=== PATIENT | male | born 1980 | race Caucasian/White ===

== ENCOUNTER 2017-01-01 15:26 | Inpatient (IN) | payer MEDICARE ==
[~2017-01-01] VITALS: Ht 157.5 cm; Wt 133.6 kg
[~2017-01-01 15:26] MED LIST: ACETAMINOPHEN325 MG PO; ACETAMINOPHEN500 M1 PO; ACIDOPHILUS LAC1 CAP PO; AMBIEN10 MG PO; BACTRIM DS TABL1 TAB PO; BACTROBAN 22 GM22 GM TP; BENEFIBER1 PKT PO; CALMOSEPTINE OI71 GM TOPICAL; CARAFATE1 G PO; CARAFATE1 G/10 ML PO; CIPRO500 MG PO; COLACE100 MG PO; CYCLOBENZAPRINE5 MG PO; DEMEROL 2525 MG/1 ML IV; DEMEROL50 MG PO; DITROPAN X5 MG/BOTTL PO; DULCOLAX10 MG/SUPP RC; ELIQUIS2.5 MG PO; ENULOSE10 G/15 ML PO; FIBER-TABS625 MG PO; FLAGYL500 MG PO; HYDROCODON-ACE1 EAC7 PO; HYDROCODONE-APA1 TAB PO; K-TAB10 MEQ PO; KLONOPIN1 MG PO; LACTINEX C1 TAB.CHEW PO; LASIX20 MG PO; LIBRAX CAPSULE1 CAP PO; LINZESS145 MCG PO; LISINOPRIL10 MG PO; LOMOTIL TABLET1 TAB PO; MELATONIN 3 MG1 TAB PO; MILK OF MAGNESI30 ML PO; MIRALAX17 GM PO; MOBIC7.5 MG PO; NORCO 10/325 TA1 TA1 PO; NUCYNTA50 MG PO; NYSTATIN1 PWD TOPICAL; NYSTATIN1 PWD TP; NYSTATIN15 GM TP; OXY IR30 MG PO; PEPCID20 MG PO; PHENERGAN25 M1 PO; PHENERGAN25 MG/ML IV; PRILOSEC20 MG PO; PROBIOTIC1 EAC1 PO; PROMOD LIQUID P30 M1 PO; PROTONIX40 MG PO; ROBAXIN-750750 MG PO; ROCEPHIN 1 GM/D51 G1 IM; SALINE FLUSH10 ML IV; SILVASORB HYDRO45 GM TP; TAZICEF IV; THEREMS-M1 TAB PO; TOPROL XL25 MG PO; TUMS500 MG PO; TYLENOL ARTHRI650 MG PO; ULTRAM50 MG PO; VANCOMYCIN 750750 MG IV; VANCOMYCIN250 MG/51 PO; VERELAN180 MG PO; VIBRAMYCIN 100100 MG PO; VITAMIN D5000 UNIT PO; ZANTAC150 MG PO; ZOFRAN8 MG PO; [UNRECOGNIZED DRUG - OTHER]
[2017-01-01 16:27] LABS: BASOPHILS 0.3 % (0-2); EOSINOPHILS 2.9 % (0-7); HEMATOCRIT 23.8 % (42.0-54.0); IMMATURE GRANULOCYTES 3.9 % (0-5); LYMPHOCYTES 17.6 % (15-50); MCH 22.4 pg (26.0-34.0); MCV 77.3 fL (80.0-100.0); MEAN PLATELET VOLUME 7.6 fL (7.4-10.4); MONOCYTES 11.1 % (2-11); NEUTROPHILS 64.2 % (40-80); RBC 3.08 10x6/uL (4.20-6.10); RDW 18.5 % (11.5-14.5); WBC 15.4 10x3/uL (4.8-10.8)
[2017-01-01 16:35] LABS: HEMOGLOBIN 6.9 g/dL (13.5-17.5); PLATELET COUNT 585 10x3/uL (130-400)
[2017-01-01 16:37] LABS: ALBUMIN 1.7 g/dL (3.4-5.0); ANION GAP 19.7 mmol/L (8-16); CALCIUM 8.6 mg/dL (8.5-10.1); CARBON DIOXIDE 14.5 mmol/L (21.0-32.0); CREATININE - SERUM 3.5 mg/dL (0.6-1.3)
[2017-01-01 16:40] LABS: APPEARANCE CLOUDY (CLEAR); BILIRUBIN NEGATIVE (NEGATIVE); COLOR YELLOW (YELLOW); GLUCOSE NEGATIVE (NEGATIVE); KETONE NEGATIVE (NEGATIVE); LEUKOCYTE ESTERASE 2+ (NEGATIVE); NITRITE NEGATIVE (NEGATIVE); POTASSIUM - SERUM 6.2 mmol/L (3.5-5.1); PROTEIN 2+ mg/dL (NEGATIVE); UROBILINOGEN NORMAL (NORMAL)
[2017-01-01 16:42] LABS: BACTERIA MANY /hpf (NONE SEEN); CALCIUM OXALATE CRYSTALS 0-5 /hpf (NONE SEEN); EPITHELIAL CELLS 0-5 /hpf (0-5)
[2017-01-01 16:43] LABS: YEAST >1+ WITH HYPHAE /hpf (NONE SEEN)
[2017-01-01 16:59] LABS: BILIRUBIN - TOTAL 0.24 mg/dL (0.2-1.3); PROTEIN - SERUM 7.7 g/dL (6.4-8.2)
[2017-01-01 23:56] VITALS: BP 130/68; BMI 47.7
[2017-01-02] VITALS: BP 136/65
[2017-01-02 04:00] VITALS: BP 137/49
[2017-01-02 06:53] LABS: BASOPHILS 0.4 % (0-2); EOSINOPHILS 3.5 % (0-7); IMMATURE GRANULOCYTES 4.3 % (0-5); LYMPHOCYTES 25.7 % (15-50); MCH 22.6 pg (26.0-34.0); MCHC 29.6 g/dL (31.0-37.0); MCV 76.5 fL (80.0-100.0); MEAN PLATELET VOLUME 7.8 fL (7.4-10.4); MONOCYTES 15.3 % (2-11); NEUTROPHILS 50.8 % (40-80); PLATELET COUNT 560 10x3/uL (130-400); RBC 3.27 10x6/uL (4.20-6.10); RDW 17.8 % (11.5-14.5)
[2017-01-02 07:00] LABS: WBC 9.7 10x3/uL (4.8-10.8)
[2017-01-02 07:05] LABS: HEMOGLOBIN 7.4 g/dL (13.5-17.5)
[2017-01-02 07:18] LABS: ALBUMIN 1.6 g/dL (3.4-5.0); ANION GAP 17.1 mmol/L (8-16); BILIRUBIN - TOTAL 0.2 mg/dL (0.2-1.3); CALCIUM 7.7 mg/dL (8.5-10.1); CARBON DIOXIDE 18.8 mmol/L (21.0-32.0); CREATININE - SERUM 2.9 mg/dL (0.6-1.3); POTASSIUM - SERUM 4.9 mmol/L (3.5-5.1); PROTEIN - SERUM 7.1 g/dL (6.4-8.2)
[2017-01-02 08:00] VITALS: BP 87/45
--- NOTE | 2017-01-02 08:28 | NUR ---
SECOND UNIT OF PRBC'S STARTED INFUSING AT THIS TIME. BP IS A LITTLE LOW. PT STATING " EVERYONE IS TELLING ME LIES, I CAME IN WITH ABD PAIN, AND NOW THEY SAY THAT I HAVE A UTI AND MY BLOOD COUNT IS LOW". INFOMRED PT THAT HE WAS ADMINTTED FOR UTI AND ANEMIA. PT DENIES ANY OTHER NEEDS AT THIS TIME. CALL LIGHT IN REACH, NAD NOTED, WILL CONTINUE TO MONITOR.
--- NOTE | 2017-01-02 10:55 | NUR ---
ADMINISTERED MORNING MEDICATIONS, PT IN BED, STATES THAT HE DOES NOT TAKE MILK OF MAG OR MIRALAX. PT INFORMED ABOUT HIS BP BEING A LITTLE LOW THAT I HAVE TO WAIT TO GIVE HIM PAIN MEDS. PT DENIES ANY OTHR NEEDS AT THIS TIME. CALL LIGHT IN REACH, NAD NOTED, WILL CONTINUE TO MONITOR.
--- NOTE | 2017-01-02 11:05 | NUR ---
0.5MG OF DILAUDID GIVEN FOR PAIN LEVEL OF 6/10.
[2017-01-02 12:00] VITALS: BP 92/45
--- NOTE | 2017-01-02 12:00 | NUR ---
UNIT OF PRBC'S FINISHED INFUSING AT THIS TIME. VITAL SIGNS STABLE. PT DENIES ANY NEEDS AT THIS TIME. CALL LIGHT IN REACH, NAD NOTED, WILL CONTINUE TO MONITOR.
--- NOTE | 2017-01-02 14:45 | NUR ---
WENT TO ADMINSITERD DUCOLAX SUPP AND PT STATED " I DONT TAKE THOSE BECAUSE THEY DONT STAY IN, THAT'S WHY I TAKE MIRALAX. MIRALAX ADMINISTERED AT THIS TIME. PT WANTS PAIN MED. INFOMRED HIM THAT HE CAN HAVE IT AROUND 1500. CALL LIGHT IN REACH, NAD NOTED, WILL CONTINUE TO MONITOR.
--- NOTE | 2017-01-02 15:36 | NUR ---
GAVE 0.5MG OF DILAUDID FOR PAIN LEVEL OF 6/10. PT DENIES ANY OTHER NEEDS AT THIS TIME. CALL LIGHT IN REACH, NAD NOTED, WILL CONTINUE TO MONITOR.
[2017-01-02 15:58] LABS: HEMATOCRIT 27.9 % (42.0-54.0); HEMOGLOBIN 8.6 g/dL (13.5-17.5)
[2017-01-02 16:00] VITALS: BP 105/57
[2017-01-02 19:00] VITALS: BP 109/60
--- NOTE | 2017-01-02 21:30 | NUR ---
PT REFUSED COLACE AND MIRALAX, STATE THESE MEDS MAKE HIM STOMACH PAIN.
[2017-01-03] VITALS: BP 103/60
--- NOTE | 2017-01-03 03:10 | NUR ---
PT REST QUIETLY IN BED, EYE CLOSE, BED LOW, CALL LIGHT WITHIN REACH.
--- NOTE | 2017-01-03 03:43 | NUR ---
BLUEPRINTER AT BEDSIDE FOR VS. NEEDS ADDRESSED AT THIS TIME. CALL LIGHT IN REACH. WILL CONT TO MONITOR.
[2017-01-03 04:00] VITALS: BP 99/54
--- NOTE | 2017-01-03 04:53 | NUR ---
PT REFUSED BLOOD DRAW AT 0452.
[2017-01-03 07:52] VITALS: BP 98/52
--- NOTE | 2017-01-03 08:00 | NUR ---
PATIENT REFUSED LAB DRAW. ASKED PATIENT IF I CAN TURN HIM ON HIS SIDE TO ASSESS HIS SORE ON HIS BUTTOM, PATIENT STATED "NOT RIGHT NOW, LATER YOU CAN."
--- NOTE | 2017-01-03 11:00 | NUR ---
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 HE IS BED/WHEELCHAIR BOUND AND IS LIVING IN [place]. HE HAS A SUPRAPUBIC CATH AND THE AREA SURROUNDING THE INSERTION SITE IS RAW/IRRITATED. BILATERAL LOWER EXTREMITIES INCLUDING FEET ARE EDEMATOUS, BUMPY, SCALY AND RED. WILL RECOMMEND WET TO DRY DRESSINGS WITH DAKINS FOR WOUNDS ON BOTTOM. LEGS: KEEP CLEAN AND DRY - ELEVATE IF POSSIBLE\ WOUND CARE WILL MONITOR.
[2017-01-03 11:56] VITALS: BP 80/44
[2017-01-03 12:50] VITALS: Ht 157.5 cm; Wt 133.6 kg
[2017-01-03 13:03] LABS: BASOPHILS 0.3 % (0-2); HEMATOCRIT 27.8 % (42.0-54.0); HEMOGLOBIN 8.3 g/dL (13.5-17.5); IMMATURE GRANULOCYTES 1.8 % (0-5); LYMPHOCYTES 14.6 % (15-50); MCH 23.6 pg (26.0-34.0); MCHC 29.9 g/dL (31.0-37.0); MEAN PLATELET VOLUME 7.5 fL (7.4-10.4); MONOCYTES 14.4 % (2-11); NEUTROPHILS 64.9 % (40-80); PLATELET COUNT 488 10x3/uL (130-400); RBC 3.51 10x6/uL (4.20-6.10); RDW 19.1 % (11.5-14.5); WBC 10.8 10x3/uL (4.8-10.8)
[2017-01-03 13:04] LABS: MCV 79.2 fL (80.0-100.0)
[2017-01-03 13:26] LABS: ANION GAP 18.5 mmol/L (8-16); CALCIUM 8.2 mg/dL (8.5-10.1); CARBON DIOXIDE 15.9 mmol/L (21.0-32.0); CREATININE - SERUM 2.4 mg/dL (0.6-1.3); POTASSIUM - SERUM 4.4 mmol/L (3.5-5.1); VANCOMYCIN - RANDOM 24.4 ug/mL (10.0-20.0)
[2017-01-03 16:14] VITALS: BP 90/48
[2017-01-03 16:28] VITALS: BP 92/40
--- NOTE | 2017-01-03 17:06 | NUR ---
Patient Name: BRANDIE WOO Admission Status: ER Accout number: [id number] Admission Date: 01-01-2017 : 1980 Admission Diagnosis: Attending: BART Current LOS: 2 Anticipated DC Date: Planned Disposition: Nursing Facility [facility] Primary Insurance: MEDICARE A & B Discharge Planning Comments: CM MET WITH PATIENT TO DISCUSS DISCHARGE PLANNING/NEEDS. PATIENT STATED HIS PLANS WERE TO RETURN TO [facility] UPON DISCHARGE, HE STATED THAT HE IS GETTING TIRED OF THE PLACE, BUT IT IS HOME. STATED THAT HE WAS ONLY SUPPOSE TO GO THERE FOR REHAB ONLY, BUT HIS EXWIFE CALLED HIM AND TOLD HIM HE DOES NOT HAVE A HOME TO COME BACK TO SO NOW HE IS A RESIDENT. HE STATED THAT THE DETENTION USUALLY PICKS HIM UP OR WE SEND HIM BACK BY AMBULANCE. HE DENIES NEEDS THAT ARE NOT PRIVIDED BY THE DETENTION . HE DID HOWEVER STATE THAT HE WANTED TO KNOW IF WE COULD HELP HIM GET A MEDICAID PHONE. EXPLAINED THAT I WOULD CHECK INTO IT FOR HIM, BUT HE MAY HAVE TO CALL AND ARRANGE THAT HIMSELF. HE STATED "OK". CM WILL CONTINUE TO FOLLOW. Flat Machine Cutter: Bhakti Muhammad Is the patient Alert and Oriented? Yes * How many steps to enter\\exit or inside your home? 0 * PCP DR SANDERS * Pharmacy [facility] * Preadmission [facility] * Facility Name [facility] * ADLs Partial Dependent * Partial ADLs (Assistance needed) Ambulation Bathing Medication Management Toileting Transfers * Equipment Catheter Supplies Shower Chair Wheelchair * List name and contact numbers for known caregivers / representatives who currently or will assist patient after discharge: CARISSA CAMEJO, SISTER, ROBSON WOO, BROTHER, * Community resources currently utilized None * Additional services required to return to the preadmission environment? No * Can the patient safely return to the preadmission environment? Yes * Has this patient been hospitalized within the prior 30 days at any hospital No
--- NOTE | 2017-01-03 18:40 | NUR ---
PATIENT IS AWAKE, ALERT AND ORIENTED X'S 4. RESPIRATIONS ARE EVEN AND UNLABORED ON ROOM AIR. SUPRAPUBIC CATHETER DRAINING TO GRAVITY, SECURED TO LEFT LEG VIA STAT-LOCK. PATIENT DENIES NEEDS AT THIS TIME. NO SIGNS OF DISTRESS NOTED.
--- NOTE | 2017-01-03 19:30 | NUR ---
PT. IN BED WITH HOB UP FOR COMFORT. ASSSESSMENT COMPLETED. NO VOICED NEEDS AT THIS TIME AND HE HAS HIS CALL LIGHT WITHIN REACH.
--- NOTE | 2017-01-03 20:45 | CN ---
PATIENT NAME:BRANDIE WOO MEDICAL RECORD: [id number] : [birth year] LOCATION:[facility].2134 ADMIT DATE: 01/01/17 ACCOUNT: [id number] CONSULTING PHYSICIAN: MARK MCGHEE MD REFERRING PHYSICIAN: MAURO SANDERS MD DATE OF CONSULTATION: 01/02/2017 SURGICAL CONSULTATION SURGEON: Mark Mcghee MD CHIEF COMPLAINT: Abdominal pain. HISTORY OF PRESENT ILLNESS: A 36-year-old gentleman who was [facility] the [facility] with abdominal pain. The patient has a longstanding history of chronic constipation. He has spina bifida as well as lower extremity paraplegia. The patient also has a history of chronic urinary tract infection due to extended spectrum beta-lactam in urine and is in contact isolation. He came in with profound acute renal failure as well as anemia. He says that his pain is located in the epigastric region. The pain is constant, dull throbbing ache, currently, 7/10. He says he is having bowel movements 1-2 times every day. PAST MEDICAL HISTORY: Solitary kidney, stage IV sacral decubitus, seizures, paraplegia, spina bifida, acid reflux, chronic constipation and gastritis. PAST SURGICAL HISTORY: Cholecystectomy, multiple CURRICULUM AND ASSESSMENT COORDINATOR shunts and suprapubic catheter. ALLERGIES: BACLOFEN, GABAPENTIN, LATEX AND LEVAQUIN. MEDICATIONS: Please see electronic medical record for full list of medications. FAMILY HISTORY: Cardiovascular disease. SOCIAL HISTORY: He is a former smoker. Drinks alcohol. REVIEW OF SYSTEMS: A 10-point review of systems was obtained, pertinent positive and negative as per the HPI. PHYSICAL EXAMINATION: VITAL SIGNS: Temperature 98.2, heart rate 120, respirations 20, blood pressure 137/49 and satting 99% on room air. GENERAL: This is a morbidly obese male in mild distress, eating lunch. PSYCHIATRIC: He is alert and oriented times 3. EYES: Extraocular muscles intact. EARS, NOSE AND THROAT: Mucous membranes moist. Poor dentition. CARDIOVASCULAR: Normal sinus rhythm. RESPIRATORY: Decreased breath sounds bilaterally. ABDOMEN: Firm, generalized tenderness. No guarding. No rebound. No peritoneal signs. EXTREMITIES: He has got 3+ edema of the lower extremities. SKIN: Dry and scaly. DIAGNOSTIC DATA: Abdominal x-ray was personally reviewed, which shows no signs CONSULT REPORT [id number] BRANDIE WOO of obstruction. There is significant mass of stool in the rectal vault. IMPRESSION: A 36-year-old male with chronic constipation and abdominal pain. PLAN: Recommend Dulcolax enemas as well as oral bowel regimen including MiraLax and mag citrate. I have reviewed previous gastroenterology notes due to the patient's chronic constipation, the patient was supposed to have a previous sitzmark study, which he did not complete. This time, the patient is getting transfused for his anemia, IV fluids and transfusions for acute renal failure. Monitor urine output and antibiotics for chronic UTI. The patient would likely need a CT of the abdomen and pelvis with contrast at some point in the future if renal failure improves. The patient would likely benefit from a permanent end colostomy, although this may be difficult due to his obesity and placement of his CURRICULUM AND ASSESSMENT COORDINATOR shunt in the left lower quadrant. Recommend GI consultation for ongoing therapy of chronic constipation. TRANSINT:[id number] Voice Confirmation ID: [id number] DOCUMENT ID: [id number] MARK MCGHEE MD at 2045 CC: [id number] DICTATION DATE: 01/03/17913 ASSEMBLER FOR PULLER OVER MACHINE: 01/03/171911 ADM IN [facility] [address] [place] [address]
--- NOTE | 2017-01-03 22:30 | NUR ---
PT. IN BED WITH HOB UP FOR COMFORT AND IS WATCHING TV. NO VOICED NEEDS AT THIS TIME AND HIS CALL LIGHT IS WITHIN REACH. DUVALL TO BSD WITHOUT PROBLEMS AND IV INFUSING IN LFA OF NS @ 100CC/HR.
[2017-01-04] VITALS: BP 87/42
--- NOTE | 2017-01-04 01:25 | NUR ---
LEFT FA PERIPHERAL IV HAS INFILTRATED AND THERE IS A CLEAR BLISTER TO THE RIGHT OF THE IV SITE. PERIPHERAL IV SITE DC'D AND BANDAID PLACED OVER BOTH AREAS. BOTH UE'S ARE SWOLLEN AND NO IV SITE SEEN/PALPATED AT THIS TIME. PT. HAS REQUESTED THAT AN ICU NURSE COME AND USE THE VEIN FINDER TO RESITE IV. ATTEMPTED CALL TO ICU AND LINE BUSY. WILL CONTINUE TO TRY.
--- NOTE | 2017-01-04 02:05 | NUR ---
PT. IN BED WITH HOB UP FOR COMFORT AND IS WATCHING TV. NO VOICED NEEDS AT THIS TIME AND HE HAS HIS CALL LIGHT WITHIN REACH.
--- NOTE | 2017-01-04 02:10 | NUR ---
ICU CHARGE NURSE, TIM, CAME DOWN TO ATTEMPT TO RESITE IV. ATTEMPTED X 2 UNSUCCESSFULLY. TIM WILL SEE IF SHE CAN RELIEVE CRISTÓBAL, BANQUET SERVER TO SEE IF HE CAN RESITE IV.
--- NOTE | 2017-01-04 04:01 | NUR ---
CALLED ICU I HAD NOT SEEN/HEARD FROM NURSE REGARDING RESITING I.V. CRISTÓBAL STATED THAT HE WOULDN'T BE ABLE TO COME OVER THIS SHIFT DUE TO HIS PT. RESPONSIBILITIES. INFORMED CHARGE NURSE OF MED 2 AND SOMEONE FROM UNIT WILL SEE IF THEY CAN RESITE IV.
--- NOTE | 2017-01-04 04:20 | NUR ---
MASHA ETIENNE ATTEMPTED TO RESITE IV AND PT. REFUSED TO LET HER EVEN STICK HIM ONCE. WILL INFORM ONCOMING STAFF. PT. IS AWARE THAT HE WILL NOT BE ABLE TO GET ANY IV DILAUDID FOR PAIN RELIEF ALSO.
[2017-01-04 06:01] LABS: ANION GAP 20.1 mmol/L (8-16); CALCIUM 7.5 mg/dL (8.5-10.1); CARBON DIOXIDE 15.1 mmol/L (21.0-32.0); CREATININE - SERUM 2.1 mg/dL (0.6-1.3)
[2017-01-04 06:15] LABS: POTASSIUM - SERUM 5.2 mmol/L (3.5-5.1)
[2017-01-04 06:48] LABS: HEMATOCRIT 25.8 % (42.0-54.0); HEMOGLOBIN 8.2 g/dL (13.5-17.5); LYMPHOCYTES 19.9 % (15-50); MCH 24.6 pg (26.0-34.0); MCHC 31.8 g/dL (31.0-37.0); MCV 77.2 fL (80.0-100.0); MEAN PLATELET VOLUME 7.5 fL (7.4-10.4); NEUTROPHILS 62.7 % (40-80); PLATELET COUNT 361 10x3/uL (130-400); RBC 3.34 10x6/uL (4.20-6.10); RDW 19.2 % (11.5-14.5); WBC 8.8 10x3/uL (4.8-10.8)
--- NOTE | 2017-01-04 07:00 | NUR ---
RECEIVED REPORT. ASSUMED CARE OF PATIENT. CALL LIGHT WITHIN REACH. PATIENT WITH NO IV ACESS BUT STATES HE WILL LET THE VASCULAR NURSE PLACE AN IV. SUPRAPUBIC CATH DRAINING CLEAR YELLOW URINE. REMAINS IN CONTACT ISOLATION FOR ESBL IN URINE. NO DISTRESS.
[2017-01-04 08:00] VITALS: BP 129/44
--- NOTE | 2017-01-04 08:34 | NUR ---
IV ACCESS-22 GAUGE INSERTED IN RIGHT INNER FOREARM. MAY GUEVARA RN
--- NOTE | 2017-01-04 09:29 | NUR ---
MEDICATED FOR PAIN AT THIS TIME. NO DISTRESS.
--- NOTE | 2017-01-04 09:29 | NUR ---
UA OBTAINED VIA PORT ON SUPRAPUBIC CATHETER WITH STERILE SYRINGES/ STERILE COLLECTION CONTAINER AND PORTS CLEANSED WITH CHOLORHEXIDINE SCRUB. SPECIMEN SUBMITTED TO LAB AT THIS TIME.
[2017-01-04 10:15] LABS: APPEARANCE CLOUDY (CLEAR); BILIRUBIN NEGATIVE (NEGATIVE); COLOR YELLOW (YELLOW); GLUCOSE NEGATIVE (NEGATIVE); KETONE NEGATIVE (NEGATIVE); LEUKOCYTE ESTERASE 2+ (NEGATIVE); NITRITE NEGATIVE (NEGATIVE); PROTEIN NEGATIVE (NEGATIVE); SPECIFIC GRAVITY 1.005 (1.005-1.020); UROBILINOGEN NORMAL (NORMAL)
[2017-01-04 10:16] LABS: BACTERIA MODERATE /hpf (NONE SEEN); EPITHELIAL CELLS 0-5 /hpf (0-5); RED CELLS - URINE 0-5 /hpf (0-5); WHITE CELLS - URINE >50 /hpf (0-5)
[2017-01-04 12:00] VITALS: BP 119/43
--- NOTE | 2017-01-04 15:15 | NUR ---
PATIENT REFUSED DRESSING CHANGE TO BUTTOCKS/SACRUM/COCCYX AT THIS TIME. ENCOURAGED PATIENT THE NEED FOR DRESSING CHANGE AND PATIENT REFUSED. CALL LIGHT WITHIN REACH. NO DISTRESS.
[2017-01-04 16:00] VITALS: BP 112/66
--- NOTE | 2017-01-04 16:12 | NUR ---
MEDICATED FOR PAIN AT THIS TIME. NO DISTRESS.
[2017-01-04] MEDS ORDERED: PRAVACHOL40 MG PO (16:30)
[2017-01-04] MEDS ORDERED: CELEXA20 MG PO (16:30)
[2017-01-04] MEDS ORDERED: LAMISIL250 MG PO (16:31)
[2017-01-04] MEDS ORDERED: ZOFRAN4 MG PO (16:31)
[2017-01-04] MEDS ORDERED: BUTALB-APAP-CA1 EACH PO (16:32)
[2017-01-04] MEDS ORDERED: HYDROCODONE-APA1 TAB PO (16:33)
[2017-01-04] MEDS ORDERED: MELATONIN 3 MG1 TAB PO (16:34)
[2017-01-04 19:00] VITALS: BP 112/56
--- NOTE | 2017-01-04 19:15 | NUR ---
PT IN BED WITH HOB UP FOR COMFORT. WATCHING TV. PT HAS NO COMPLAINTS AT THIS TIME. ALERT & ORIENTED. CONTACT ISOLATION. PARAPALEGIC. TELEMETRY. SUPRAPUBIC CATHETER. NO 02. RIGHT WRIST NS @100ML/HR. BED IN LOWEST POSITION AND CALL LIGHT WITHIN REACH.
[2017-01-05] VITALS: BP 93/54
--- NOTE | 2017-01-05 01:28 | NUR ---
PT IN BED WT HOB UP FOR COMFORT. EYES CLOSED. CHEST RISING AND FALLING. BED IN LOWEST POSITION AND CALL LIGHT WITHIN REACH.
[2017-01-05 04:00] VITALS: BP 89/54
--- NOTE | 2017-01-05 04:11 | NUR ---
PT IN BED WITH HOB UP FOR COMFORT. WATCHING TV. BED IN LOWEST POSITION AND CALL LIGHT WITHIN REACH.
[2017-01-05 07:00] VITALS: BP 103/69
--- NOTE | 2017-01-05 08:15 | NUR ---
PT RESTING IN BED WITH EYES OPEN CALL LIGHT IN REACH WILL MONITER
--- NOTE | 2017-01-05 10:17 | NUR ---
RESTS IN ISOLATION ROOM. IV PATENT. CALL LIGHT IN REACH. WILL CONT. PLAN OF CARE.
[2017-01-05 12:00] VITALS: BP 130/81
--- NOTE | 2017-01-05 14:13 | NUR ---
Nutrition follow-up: Diet: Renal PO intake ~50% at meals Pts food preferences are being honored Pt remains in isolation Wt: 284# +BM RDN following.
[2017-01-05 16:00] VITALS: BP 94/49
[2017-01-05 19:00] VITALS: BP 101/57
--- NOTE | 2017-01-05 20:00 | NUR ---
REPORT RECEIVED AND CARE ASSUMED. HOB UP FOR COMFORT, WATCHING TV WITH NO VOICED NEEDS. AWAKE AND ALERT. CONTACT ISOLATION. SHIFT ASSESSMENT COMPLETED PER FLOW SHEET. BED IN LOW POSITION AND CALL LIGHT IN EASY REACH. PARAPLEGIC. WILL CONTINUE TO MONITOR.
--- NOTE | 2017-01-05 23:03 | NUR ---
DILAUDID 0.5MG IVP SLOWLY GIVEN FOR LEVEL #8 BACK PAIN.
[2017-01-06] VITALS: BP 108/58
[2017-01-06 04:00] VITALS: BP 110/67
--- NOTE | 2017-01-06 04:26 | NUR ---
DILAUDID 0.5 MG IVP GIVEN FOR LEVEL # 7 GENERALIZED PAIN ALL OVER.
[2017-01-06 05:19] LABS: BASOPHILS 0.4 % (0-2); EOSINOPHILS 6.8 % (0-7); HEMATOCRIT 27.5 % (42.0-54.0); HEMOGLOBIN 8.3 g/dL (13.5-17.5); IMMATURE GRANULOCYTES 3.9 % (0-5); LYMPHOCYTES 29.1 % (15-50); MCHC 30.2 g/dL (31.0-37.0); MCV 79.5 fL (80.0-100.0); MEAN PLATELET VOLUME 7.9 fL (7.4-10.4); MONOCYTES 13.3 % (2-11); NEUTROPHILS 46.5 % (40-80); RBC 3.46 10x6/uL (4.20-6.10); RDW 20.3 % (11.5-14.5); WBC 7.4 10x3/uL (4.8-10.8)
[2017-01-06 05:28] LABS: PLATELET COUNT 465 10x3/uL (130-400)
[2017-01-06 05:38] LABS: ANION GAP 15.1 mmol/L (8-16); CALCIUM 8.1 mg/dL (8.5-10.1); CREATININE - SERUM 1.6 mg/dL (0.6-1.3); POTASSIUM - SERUM 4.1 mmol/L (3.5-5.1)
--- NOTE | 2017-01-06 07:15 | NUR ---
PT SITTING UP IN BED WATCHING TV DENIES ANY NEEDS OTHER THAN PAIN MEDS. REFUSING TO TAKE NORCO, WANTS DILAUDID. NOT TIME YET, WILL GIVE WHEN TIME
[2017-01-06 08:57] VITALS: BP 106/61
--- NOTE | 2017-01-06 09:53 | NUR ---
PT REFUSING TO DO DRESSING CHANGES AT THIS TIME.
--- NOTE | 2017-01-06 10:48 | NUR ---
pt still refusing to do dressig changes
[2017-01-06 12:13] VITALS: BP 112/61
--- NOTE | 2017-01-06 13:26 | NUR ---
PT IS STILL REFUSING FOR US TO DO HIS DRESSING CHANGES.
[2017-01-06 15:59] VITALS: BP 100/67
--- NOTE | 2017-01-06 17:15 | NUR ---
PT STILL REFUSING FOR HIS DRESSINGS TO BE CHANGED.
--- NOTE | 2017-01-06 18:49 | NUR ---
PT SITTING UP IN BED SLEEPING NO S/S DISTRESS NOTED. RR EVEN AND UNLABORED.
[2017-01-06 19:00] VITALS: BP 113/41
--- NOTE | 2017-01-06 22:20 | NUR ---
Recieved patient and report, patient alert and oriented x 3, side rails up x 2, bed in low locked position, IV site patent, patient voiced no needs other than pain medications, bedside table and call light in reach, PRN Dilaudid given for pain 9 of 10 at 2114, will continue to monitor.
[2017-01-07] VITALS: BP 85/38
[2017-01-07 04:00] VITALS: BP 111/58
[2017-01-07 07:22] LABS: HEMATOCRIT 28.9 % (42.0-54.0); HEMOGLOBIN 8.6 g/dL (13.5-17.5); IMMATURE GRANULOCYTES 7.5 % (0-5); LYMPHOCYTES 25.2 % (15-50); MCH 23.6 pg (26.0-34.0); MCHC 29.8 g/dL (31.0-37.0); MCV 79.4 fL (80.0-100.0); MEAN PLATELET VOLUME 8.3 fL (7.4-10.4); MONOCYTES 9.2 % (2-11); NEUTROPHILS 49.1 % (40-80); PLATELET COUNT 446 10x3/uL (130-400); RBC 3.64 10x6/uL (4.20-6.10); RDW 20.1 % (11.5-14.5); WBC 9.5 10x3/uL (4.8-10.8)
--- NOTE | 2017-01-07 07:33 | NUR ---
AM ROUNDS - PT ASLEEP, BREATHING UNLABORED AND EVEN. BICARBONATE BEING DELIVERED AT 75MLS/HR VIA IV. NAME PLACED ON WHITE BOARD, WILL CTM.
[2017-01-07 08:57] VITALS: BP 112/60
[2017-01-07 09:45] LABS: ANION GAP 15.3 mmol/L (8-16); CALCIUM 7.7 mg/dL (8.5-10.1); CARBON DIOXIDE 23.1 mmol/L (21.0-32.0); CREATININE - SERUM 1.4 mg/dL (0.6-1.3); POTASSIUM - SERUM 4.4 mmol/L (3.5-5.1)
[2017-01-07 12:00] VITALS: BP 122/60
--- NOTE | 2017-01-07 12:19 | NUR ---
PT RESTING QUIETLY. FULL BED CHANGE, AND BED BATH GIVEN. DRESSING CHANGE COMPLETED. WOUND CLEANSER APPLIED TO REDDENED LYMPHEDEMA TO LEGS BILATERALLY. CHUCKS PADS PLACED UNDER LEGS DUE TO WEEEPING EDEMA. STAGE 4 PRESSURE ULCER PRESENT OVER BUTTOCK, NO NECROTIC TISSUE NOTED. BEEFY RED TISSUE PRESENT, BLEEDS AT TIMES. ABD PADS APPLIED TO BUTTOCK, SECURED WITH MEDIPORE TAPE. SUPER PUPIC CATHETER DRESSING CHANGE COMPLETED, REDDNESS NOTED AROUND CATHETER SITE. PT WAS IMPACTED, MI FLANAGAN REMOVED IMPACTION DIGITALLY, MODERATE AMT OF FORMED STOOL REMOVED. PT DENIES OTHER NEEDS AT THIS TIME. WILL CTM.
[2017-01-07 17:13] VITALS: BP 116/60
--- NOTE | 2017-01-07 18:40 | NUR ---
PT RESTING QUIETLY. DENIES NEEDS AT THIS TIME. IV NOT RESTARTED DUE TO DR. SANDERS STATING PT COULD LEAVE AFTER BM. PAGED DR. SANDERS X3 AND NO RETURN CALL YET. PT HAD LARGE BM THIS AFTERNOON. WILL CTM.
[2017-01-07 19:00] VITALS: BP 130/64
--- NOTE | 2017-01-07 20:30 | NUR ---
DR. 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 I CALLED TO GIVE REPORT TO NURSE ELIANA AT [facility] WHO STATED THEY CANNOT ACCEPT HIM TONIGHT DUE TO THE LATE HOUR OF D/C BECAUSE THEY HAVE NO TRANSPORTATION AT THIS TIME. D/C WILL BE DELAYED UNTIL TOMORROW A RESULT. D/C ORDER INCLUDES RESTART OF HOME MEDICATIONS, D/C PTS DILAUDID AND CONTINUE PTS PO NORCO 10/325 Q 4 HOURS PRN PAIN. CONTINUE TO MONITOR PT.
--- NOTE | 2017-01-07 22:03 | NUR ---
IV TO RIGHT WRIST/FOREARM INFILTRATED. PT REQUESTED IV BE REMOVED SINCE HE IS BEING D/C'D IN THE A.M. IV REMOVED WITH CATH TIP INTACT. PT DENIES ANY NEEDS. CONTINUE TO MONITOR CLOSELY.
--- NOTE | 2017-01-07 22:14 | NUR ---
PT AWAKE, ALERT, ORIENTED, SITTING IN BED LOOKING AT TV. PT DENIES ANY NEEDS. CONTINUE TO MONITOR CLOSELY.
--- NOTE | 2017-01-08 03:13 | NUR ---
PT CALLED C/O NOT BEING ABLE TO TAKE A DEEP BREATH. PT DENIES CHEST PAIN. LUNGS CLEAR WHEN AUSCULATED, HOWEVER THE RIGHT UPPER LOBE IS DIMINISHED. PT DENIES ANY OTHER S/S OR DIFFICULTIES. CONTINUE TO MONITOR CLOSELY.
[2017-01-08 04:00] VITALS: BP 107/59
--- NOTE | 2017-01-08 04:15 | NUR ---
PT REQUESTED WARM PACK FOR ANTERIOR CHEST DISCOMFORT. DENIES ANY OTHER NEEDS. CONTINUE TO MONITOR CLOSELY.
--- NOTE | 2017-01-08 07:52 | NUR ---
AM ROUNDS - PT IN BED AND APPEARS TO BE SLEEPING WITH EQUAL AND NON LABORED BREATHING. CALL [facility] IN USE/REACH. SIDE RAILS UP X2. WILL CONTINUE TO MONITOR
[2017-01-08 09:56] VITALS: BP 117/62
--- NOTE | 2017-01-08 11:44 | NUR ---
CALLED REPORT TO [facility]. CALLED [facility] FOR TRANSPORT. GAVE VERBAL D/C ORDERS TO PT. GAVE WRITTEN D/C INSTRUCTIONS TO EMS TRANSPORT. PT LEFT FLOOR VIA WHEELCHAIR WITH TRANSPORT. NO IV TO D/C. PT LEFT WITH SUPRA PUBIC DUVALL. WILL D/C
--- NOTE | 2017-01-08 15:46 | NUR ---
LATE ENTRY PATIENT WAS DISCHARGED BACK TO [facility]. PATIENT WAS DISCHARGED BACK TO A [employer] BED.
== END 2017-01-08 11:48 | DRG 388 ==
LOC: D.ER 15:26 → D.M2 19:00
PROVIDERS: Family Medicine; Student in an Organized Health Care Education/Training Program; ADMIT Family Medicine
DX: K56.60 Unspecified intestinal obstruction (principal); L89.154 Pressure ulcer of sacral region, stage 4; N17.0 Acute kidney failure with tubular necrosis; G82.20 Paraplegia, unspecified; B37.49 Other urogenital candidiasis; K59.09 Other constipation; E86.0 Dehydration; Q05.9 Spina bifida, unspecified; K21.9 Gastro-esophageal reflux disease without esophagitis; E66.9 Obesity, unspecified; I12.9 Hypertensive chronic kidney disease with stage 1 through stage 4 chronic kidney disease, or unspecified chronic kidney disease; N18.9 Chronic kidney disease, unspecified; D64.9 Anemia, unspecified; N31.9 Neuromuscular dysfunction of bladder, unspecified; Z22.39 Carrier of other specified bacterial diseases; Z86.718 Personal history of other venous thrombosis and embolism; Z87.891 Personal history of nicotine dependence